=== PATIENT | female | born 1995 | race Caucasian/White ===

== ENCOUNTER 2018-02-24 20:41 | Emergency (ER) | payer OTHER ==
[2018-02-24] MEDS ORDERED: METOCLOPRAMIDE HCL INJ/PF 10 MG/2 ML SDV IM ONE (22:26)
[2018-02-24] MEDS ORDERED: DIPHENHYDRAMINE HCL 50 MG/ML VIAL IM ONE (22:26)
--- NOTE | 2018-02-24 22:29 | ER Document Report ---
ED Headache - General Chief Complaint: Headache Stated Complaint: HEADACHE Time Seen by Provider: 02/24/18 22:12 Mode of Arrival: Ambulatory Information source: Patient TRAVEL OUTSIDE OF THE [place] IN LAST 30 DAYS: No - HPI Patient complains to provider of: Headache Notes: Patient is here with complaints of headache. She states that for the last week she has had a headache. When she takes ibuprofen the headache typically goes away but then when the ibuprofen wears off the headache returns. She states that today the headaches seem to get worse and the ibuprofen was no longer helping. Headache seems to be behind her eyes and wraps around the right side of her head. She describes it as a pressure. She denies any blurred or loss vision. She denies any nausea, vomiting, diarrhea. She does complain of some tingling to the right side of her face, but denies any numbness. She denies any unilateral numbness, tingling, weakness to her extremities at this time. She has no chest pain or shortness of breath. This was not a sudden onset, thunderclap type headache, it has been gradual and intermittent throughout the week. She denies being on blood thinning medications. She denies any injury to the head. She denies any fevers or neck stiffness. She denies any new rashes. She denies any blurred or loss vision. Patient recently moved to [place] about a month ago, but does have a primary care doctor who she is established with. She states that it is not common for her to get headaches. She denies any other complaints at this time. Past Medical History - Social History Smoking Status: Never Smoker Chew tobacco use (# tins/day): No Frequency of alcohol use: None Drug Abuse: None Family History: Reviewed & Not Pertinent Patient has suicidal ideation: No Patient has homicidal ideation: No Renal/ Medical History: Denies: Hx Peritoneal Dialysis Past Surgical History: Reports: Hx Tonsillectomy Review of Systems - Review of Systems -: Yes All other systems reviewed and negative Physical Exam - Vital signs Vitals: Temp Pulse Resp BP Pulse Ox 98.0 F 87 16 157/95 H 97 02/24/18 20:49 02/24/18 20:49 02/24/18 20:49 02/24/18 20:49 02/24/18 20:49 - Notes Notes: GENERAL: alert, cooperative, nontoxic, no distress. HEAD: normocephalic, atraumatic EYES: conjunctiva pink without discharge, no external redness or swelling. Pupils are equal, round, reactive to light. EARS: no external swelling, no external redness NOSE: atraumatic, no external swelling MOUTH/THROAT: mucous membranes moist and pink, posterior pharynx without erythema, swelling, exudate. No trismus or drooling. NECK: soft, supple, full range of motion, no meningismus. CHEST: no distress, lungs clear and equal throughout. No wheezing, rales, rhonchi. CARDIAC: regular rate and rhythm, no murmur, normal capillary refill, normal pulses. No peripheral edema noted. BACK: full range of motion, no CVA tenderness. EXTREMITIES: full range of motion of all extremities. No redness, no swelling. NEURO: alert and oriented x 3, cranial nerves II through XII are grossly intact. Upper and lower extremities are equal throughout. Normal sensation. No focal deficits, full range of motion of all extremities. normal finger to nose. No facial sensation deficits on exam. PYSCH: appropriate mood, affect. Patient is cooperative. SKIN: pink, warm, dry, no rash. Course - Re-evaluation Re-evalutation: 02/24/18 23:58 Patient is nontoxic appearing with stable vitals. The patient arrives with complaint of headache. This headache is been present for 1 week. She states that the headache seems to improve with ibuprofen but then when the ibuprofen wears off it returns. Today she was unable to get the headache to go away with ibuprofen. This was not a sudden onset, thunderclap headache. She is not on blood thinning medications. There was no injury. She denies any significant history of headaches. She has no neck stiffness. No fevers. She is a nonfocal neurological exam. Due to the fact that she does not have a significant history of headaches, a CT of the brain was ordered, this shows no acute findings per the radiologist. Patient was given migraine cocktail including Toradol, Reglan, Benadryl IM. She states that she is feeling significantly better at this time and would like to go home. The patient will be discharged home with instructions to follow-up with her primary care doctor at the next available appointment. Follow-up sooner for worsening pain, high fever, neck stiffness, persistent vomiting, numbness, tingling, weakness, or for any further concerns. Patient has no signs of subarachnoid hemorrhage, meningitis, other serious pathological source for her headache at this time. The patient is noted to have elevated blood pressure during today's emergency department visit. The patient was informed of this finding. The patient was instructed that this may be related to pre-hypertension and requires further evaluation with a primary care provider. The patient has no hypertensive symptoms at this time. The patient's emergency department workup and current diagnosis were explained to the patient and or family. Follow-up instructions were provided. Medications if prescribed were discussed. Instructions for when to return to the emergency department including specific worrisome symptoms were discussed with the patient and/or family. - Vital Signs Vital signs: Temp Pulse Resp BP Pulse Ox 98.0 F 87 16 157/95 H 97 02/24/18 20:49 02/24/18 20:49 02/24/18 20:49 02/24/18 20:49 02/24/18 20:49 - Diagnostic Test Radiology reviewed: Image reviewed, Reports reviewed - Negative brain CT Discharge - Discharge Clinical Impression: Headache Qualifiers: Headache type: unspecified Headache chronicity pattern: acute headache Intractability: not intractable Qualified Code(s): R51 - Headache Condition: Stable Disposition: HOME, SELF-CARE Instructions: Headache ([facility]) Additional Instructions: Follow-up with your doctor at the next available appointment. Drink plenty of fluids. Tylenol or Motrin as needed for further headaches. Follow-up sooner for worsening pain, high fever, numbness, tingling, weakness on one side your body, neck stiffness, rash, persistent vomiting, or for any further concerns. Your blood pressure was elevated during today's visit. Have this rechecked with your doctor. Forms: Elevated Blood Pressure Referrals: PHIL FIELDS FNP-C [Primary Care Provider] - Follow up as needed
--- NOTE | 2018-02-24 23:04 | RADIOLOGY REPORT (SQ) ---
EXAM DESCRIPTION: CT HEAD WITHOUT COMPLETED DATE/TIME: 02/24/2018 10:55 pm REASON FOR STUDY: headache COMPARISON: None. TECHNIQUE: Axial images acquired through the brain without intravenous contrast. Images reviewed wi th bone, brain and subdural windows. Additional sagittal and coronal reconstructions were generated. Images stored on PACS. All CT scanners at this facility use dose modulation, iterative reconstruction, and/or weight based d osing when appropriate to reduce radiation dose to as low as reasonably achievable (ALARA). [facility]: Dose Right [facility]: CareDose [facility]: Dose Right [facility]: Teradose 4D [facility]: [employer] RADIATION DOSE: CT Rad equipment meets quality standard of care and radiation dose reduction techniq ues were employed. CTDIvol: 48.6 mGy. DLP: 929 mGy-cm. mGy. LIMITATIONS: None. FINDINGS: VENTRICLES: Normal size and contour. CEREBRUM: No masses. No hemorrhage. No midline shift. No evidence for acute infarction. Normal gra y/white matter differentiation. No areas of low density in the white matter. CEREBELLUM: No masses. No hemorrhage. No alteration of density. No evidence for acute infarction. EXTRAAXIAL SPACES: No fluid collections. No masses. ORBITS AND GLOBE: No intra- or extraconal masses. Normal contour of globe without masses. CALVARIUM: No fracture. PARANASAL SINUSES: No fluid or mucosal thickening. SOFT TISSUES: No mass or hematoma. OTHER: No other significant finding. IMPRESSION: NORMAL BRAIN CT WITHOUT CONTRAST. EVIDENCE OF ACUTE STROKE: NO. COMMENT: Quality ID # [id number]: Final reports with documentation of one or more dose reduction techniques (e.g., Automated exposure control, adjustment of the mA and/or kV according to patient size, use of iterative reconstruction technique) TECHNICAL DOCUMENTATION: JOB ID: [id number] [email or web address]- All Rights Reserved Reading location - IP/workstation name: [email or web address] [id number]
[2018-02-24] MEDS ORDERED: KETOROLAC TROMETHAMINE INJ/PF 30 MG/1 ML SDV IM ONE (23:11)
[2018-02-25 00:09] VITALS: BP 137/89
== END 2018-02-25 00:11 | disposition home or self-care (01) ==
LOC: ER 20:41
DX: R51 Headache (principal); R20.0 Anesthesia of skin
CPT/HCPCS: 99284; 96372; 70450; J1200; J1885; J2765

== ENCOUNTER 2018-03-01 18:48 | Emergency (ER) | payer OTHER ==
[2018-03-01] MEDS ORDERED: KETOROLAC TROMETHAMINE INJ/PF 30 MG/1 ML SDV IV ONE (21:25)
[2018-03-01] MEDS ORDERED: METOCLOPRAMIDE HCL INJ/PF 10 MG/2 ML SDV IV ONE (21:25)
[2018-03-01] MEDS ORDERED: DIPHENHYDRAMINE HCL 50 MG/ML VIAL IV ONE (21:25)
[2018-03-01] MEDS ORDERED: METOPROLOL TARTRATE 25 MG TABLET PO ONE (21:25)
--- NOTE | 2018-03-01 21:29 | ER Document Report ---
ED General - General Chief Complaint: Numbness of Face Stated Complaint: FACIAL NUMBNESS Time Seen by Provider: 03/01/18 20:58 Mode of Arrival: Ambulatory Information source: POA - Power of District Recruiter Notes: Patient presents complaining of left face and neck fullness and tightness that started today. Patient states she has had headache pains off and on for over a week. Patient states that her headache only just started while she was waiting here in the lobby today. Patient additionally complains of cramping to her left calf that occurred 2 days ago and then happened again today. Patient states that she felt the muscles spasming and then stopped. Patient was seen here 5 days ago for headache pain and had a negative CAT scan of the head. Patient did have an elevated blood pressure reading at that time and was advised to follow-up with her primary doctor. Patient saw her primary doctor yesterday and was placed on a blood pressure medicine as well as cholesterol medicine. Patient states that she is due to have an outpatient MRI as well. Patient denies any fever, chest pain or shortness of breath. Patient states that her primary doctor was called and advised her to come to the emergency department to rule out any cardiac source for her symptoms tonight. TRAVEL OUTSIDE OF THE [place] IN LAST 30 DAYS: No - HPI Onset: This afternoon Onset/Duration: Gradual Pain Level: 1 Associated symptoms: Headache, Other - Full feeling to left side of face and neck. denies: Chest pain, Fever, Nausea, Vomiting Exacerbated by: Denies Relieved by: Denies Similar symptoms previously: No Recently seen / treated by doctor: Yes - Related Data Allergies/Adverse Reactions: Sulfa (Sulfonamide Antibiotics) Allergy (Verified 03/01/18 18:50) Past Medical History - General Information source: Patient - Social History Smoking Status: Never Smoker Frequency of alcohol use: None Drug Abuse: None Occupation: None Family History: Reviewed & Not Pertinent - Past Medical History Cardiac Medical History: Reports: Hx Hypercholesterolemia, Hx Hypertension Renal/ Medical History: Denies: Hx Peritoneal Dialysis Past Surgical History: Reports: Hx Tonsillectomy Review of Systems - Review of Systems Constitutional: No symptoms reported. denies: Fever, Recent illness EENT: No symptoms reported. denies: Blurred vision, Throat pain, Dental problem Cardiovascular: No symptoms reported. denies: Chest pain, Dizziness, Lightheaded Respiratory: No symptoms reported. denies: Cough Gastrointestinal: No symptoms reported. denies: Abdominal pain, Vomiting Genitourinary: No symptoms reported Female Genitourinary: No symptoms reported Musculoskeletal: Muscle pain - Left calf cramping Skin: No symptoms reported Hematologic/Lymphatic: No symptoms reported Neurological/Psychological: Headaches, Other - Tight, full feeling to left side of face and neck. denies: Weakness Physical Exam - Vital signs Vitals: Temp Pulse Resp BP Pulse Ox 98.3 F 104 H 16 163/92 H 99 03/01/18 18:54 03/01/18 18:54 03/01/18 18:54 03/01/18 18:54 03/01/18 18:54 - General General appearance: Appears well, Alert In distress: None - HEENT Head: Normocephalic, Atraumatic, Open wounds Conjunctiva: Normal Extraocular movements intact: Yes Eyelashes: Normal Pupils: PERRL Ears: Normal External canal: Normal Tympanic membrane: Normal Nasal: Normal Mouth/Lips: Normal Mucous membranes: Normal Teeth diagram: 1 - dental caries Neck: Supple. No: Lymphadenopathy Notes: Subtle asymmetric fullness noted to left cheek and lateral side of neck, no lymphadenopathy, no parotid gland swelling. No dental tenderness. - Respiratory Respiratory status: No respiratory distress Chest status: Nontender Breath sounds: Normal Chest palpation: Normal - Cardiovascular Rhythm: Regular Heart sounds: S1 appreciated, S2 appreciated Murmur: No - Back Back: Tender - Left upper thoracic paraspinal tenderness. No: Deformity/step- off, CVA tenderness, Vertebra tenderness - Extremities General upper extremity: Normal inspection, Nontender, Normal ROM General lower extremity: Normal inspection, Nontender, Normal color, Normal ROM. No: Edema Calf: Normal, Nontender. No: Ecchymosis - Neurological Neuro grossly intact: Yes Cognition: Normal Orientation: AAOx4 [place] Coma Scale Eye Opening: Spontaneous [place] Coma Scale Verbal: Oriented [place] Coma Scale Motor: Obeys Commands [place] Coma Scale Total: 15 Speech: Normal. No: Dysarthria Cranial nerves: Normal. No: Facial palsy, Tongue deviation Cerebellar coordination: Normal, Heel-hung, Finger-nose rhombey, Rapid alt. movements. No: Gait ataxia Motor strength normal: LUE, RUE, LLE, RLE Additional motor exam normals: No: Weakness - Psychological Associated symptoms: Normal affect, Normal mood - Skin Skin Temperature: Warm Skin Moisture: Dry Skin Color: Normal Irregularity with: Other - Inflamed, scabbed acne lesions to face, left worse than right Course - Re-evaluation Re-evalutation: 03/01/18 21:[address] Watson regarding patient presentation and diagnostic evaluation. Recommends giving patient 25 of metoprolol now to help with headache as well as blood pressure symptoms and discharging patient home on metoprolol 25 twice daily. Patient just had a CT scan of the head performed 5 days ago and it was normal. Dr watson does not recommend obtaining emergent MRI at this time. 03/02/18 00:15 Patient no longer hypertensive and the metoprolol was not given during his ER stay. Patient encouraged to monitor her blood pressure and to follow-up with her primary doctor for recheck. Patient reports headache pain has resolved as well as pain, tightness and paresthesia to left cheek and neck. Patient does continue with subtle swelling to left cheek and neck area, patient does have inflamed acne skin lesions on the side of her face. Discussed with patient treating for possible developing cellulitis. Patient encouraged to follow-up with her primary doctor for recheck as well as to follow-up with neurology for further evaluation of her headaches. Patient neurologically intact, no concern for meningitis, CVA, DVT, or acute coronary syndrome. 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 The patient is neurologically intact. Given the extremely low risk of these diagnoses further testing and evaluation for these possibilities does not appear to be indicated at this time. The patient has been instructed to return if the symptoms worsen or change in any way. - Vital Signs Vital signs: Temp Pulse Resp BP Pulse Ox 97.7 F 101 H 16 123/72 96 03/01/18 23:57 03/01/18 23:57 03/01/18 23:57 03/01/18 23:57 03/01/18 23:57 - Laboratory Result Diagrams: 03/01/18 22:30 03/01/18 22:30 Laboratory results interpreted by me: 03/01/18 03/01/18 22:30 22:30 MCV 79 L MCH 26.8 L RDW 15.0 H Calcium 10.6 H - Diagnostic Test Radiology reviewed: Reports reviewed - Reviewed CT report from 5 days ago Discharge - Discharge Clinical Impression: left facial/neck swelling, paresthesia, Inflammatory acne, Leg cramps Headache Qualifiers: Headache type: unspecified Headache chronicity pattern: episodic headache Intractability: not intractable Qualified Code(s): R51 - Headache Condition: Stable Instructions: Acne ([facility]), Cephalexin ([facility]), Headache ([facility]), Leg Cramps ([facility]) Additional Instructions: Return immediately for any new or worsening symptoms Followup with your primary care provider, call tomorrow to make a followup appointment Follow-up with neurology for further evaluation of your headaches Prescriptions: Butalb/Acetaminophen/Caffeine [Fioricet (50-325-40 mg) Tablet] 1 - 2 tab PO Q4H PRN #15 each PRN Reason: Cephalexin Monohydrate [Keflex 500 mg Capsule] 500 mg PO Q6H 5 Days capsule Referrals: BROOKE DONOUHE MD [NO LOCAL MD] - Follow up as needed AFTAB MADISON FNP-C [NO LOCAL MD] - Follow up tomorrow
--- NOTE | 2018-03-01 22:16 | RADIOLOGY REPORT (SQ) ---
EXAM DESCRIPTION: CHEST 2 VIEWS COMPLETED DATE/TIME: 03/01/2018 9:48 pm REASON FOR STUDY: upper back pain COMPARISON: None. EXAM PARAMETERS: NUMBER OF VIEWS: two views TECHNIQUE: Digital Frontal and Lateral radiographic views of the chest acquired. RADIATION DOSE: NA LIMITATIONS: none FINDINGS: LUNGS AND PLEURA: No opacities, masses or pneumothorax. No pleural effusion. MEDIASTINUM AND HILAR STRUCTURES: No masses or contour abnormalities. HEART AND VASCULAR STRUCTURES: Heart normal size. No evidence for failure. BONES: No acute findings. HARDWARE: None in the chest. OTHER: No other significant finding. IMPRESSION: NO ACUTE RADIOGRAPHIC FINDING IN THE CHEST. TECHNICAL DOCUMENTATION: JOB ID: [id number] [place]-72 2010 [employer]- All Rights Reserved Reading location - IP/workstation name: [email or web address]
[2018-03-01 22:52] LABS: ABSOLUTE EOSINOPHILS # (AUTO) 0.1 10^3/uL (0.0-0.6); ABSOLUTE LYMPHOCYTES (AUTO) 2.1 10^3/uL (0.5-4.7); ABSOLUTE MONOCYTES (AUTO) 0.5 10^3/uL (0.1-1.4); ABSOLUTE NEUT (AUTO) 6.3 10^3/uL (1.7-8.2); BASOPHILS % (AUTO) 0.3 % (0-2); EOSINOPHILS % (AUTO) 1.5 % (0-6); HEMATOCRIT 40.1 % (36.0-47.0); HEMOGLOBIN 13.7 g/dL (12.0-15.5); LYMPHOCYTES % (AUTO) 22.7 % (13-45); MEAN CORPUSCULAR HEMOGLOBIN 26.8 pg (27.0-33.4); MEAN CORPUSCULAR HGB CONC 34.1 g/dL (32.0-36.0); MEAN CORPUSCULAR VOLUME 79 fl (80-97); MONOCYTES % (AUTO) 5.9 % (3-13); PLATELET COUNT 224 10^3/uL (150-450); RED BLOOD COUNT 5.11 10^6/uL (3.72-5.28); SEGMENTED NEUTROPHILS % (AUTO) 69.6 % (42-78); TOTAL CELLS COUNTED % (AUTO) 100 %; WHITE BLOOD COUNT 9.1 10^3/uL (4.0-10.5)
[2018-03-01 23:07] LABS: ALANINE AMINOTRANSFERASE 39 U/L (9-52); ALBUMIN 4.8 g/dL (3.5-5.0); ALKALINE PHOSPHATASE 58 U/L (38-126); ANION GAP 13 (5-19); ASPARTATE AMINO TRANSFERASE 23 U/L (14-36); BILIRUBIN,DIRECT 0.1 mg/dL (0.0-0.4); BILIRUBIN,TOTAL 1.2 mg/dL (0.2-1.3); BLOOD UREA NITROGEN 9 mg/dL (7-20); CALCIUM 10.6 mg/dL (8.4-10.2); CARBON DIOXIDE 29 mmol/L (22-30); CHLORIDE 101 mmol/L (98-107); CREATINE KINASE 58 U/L (30-135); GLUCOSE 90 mg/dL (75-110); POTASSIUM 4.2 mmol/L (3.6-5.0); SODIUM 142.7 mmol/L (137-145); TOTAL PROTEIN 7.5 g/dL (6.3-8.2)
[2018-03-01 23:19] LABS: CREATINE KINASE MB 0.46 ng/mL (<4.55)
[2018-03-01 23:24] LABS: TROPONIN I < 0.012 ng/mL
[2018-03-02] MEDS ORDERED: CEPHALEXIN 500 MG CAPSULE PO ONE (00:22)
[2018-03-02 00:42] VITALS: BP 123/72
--- NOTE | 2018-03-02 07:51 | EKG REPORT ---
SEVERITY:- BORDERLINE ECG - SINUS TACHYCARDIA BORDERLINE T ABNORMALITIES, ANTERIOR LEADS : Confirmed by: Thierno Reagan MD 02-Mar-2018 07:50:57
== END 2018-03-02 01:15 | disposition home or self-care (01) ==
LOC: ER 18:48
DX: R22.0 Localized swelling, mass and lump, head (principal); R22.1 Localized swelling, mass and lump, neck; R20.0 Anesthesia of skin; L70.8 Other acne; R25.2 Cramp and spasm; R51 Headache; M54.2 Cervicalgia; M54.6 Pain in thoracic spine; M79.605 Pain in left leg; I10 Essential (primary) hypertension; Z79.899 Other long term (current) drug therapy
CPT/HCPCS: 93005; 99284; 96374; 96375; 36415; 82553; 82550; 84703; 85025; 80053; 84484; 71046; 93010; J1200; J1885; J2765

== ENCOUNTER 2018-09-15 20:51 | Emergency (ER) | payer OTHER ==
[2018-09-15 20:58] VITALS: BP 139/79
--- NOTE | 2018-09-15 21:22 | ER Document Report ---
HPI - HPI Patient complains to provider of: dysuria, hematuria Pain Level: 2 Context: Patient is a 23-year-old female that comes to the emergency department for chief complaint of painful urination over the past day and she started to notice blood in her urine. She denies flank pain, nausea or vomiting, fever or chills. Denies vaginal discharge or bleeding. LMP within the past month. Medications are labetalol and metformin. Denies any surgeries. Past Medical History - General Information source: Patient - Social History Smoking Status: Never Smoker Frequency of alcohol use: None Drug Abuse: None Lives with: Family Family History: Reviewed & Not Pertinent - Past Medical History Cardiac Medical History: Reports: Hx Hypercholesterolemia, Hx Hypertension Renal/ Medical History: Denies: Hx Peritoneal Dialysis Past Surgical History: Reports: Hx Tonsillectomy - Immunizations Immunizations up to date: Yes Hx Diphtheria, Pertussis, Tetanus Vaccination: Yes Vertical Provider Document - CONSTITUTIONAL General Appearance: WD/WN, No Apparent Distress - INFECTION CONTROL TRAVEL OUTSIDE OF THE [place] IN LAST 30 DAYS: No - HEENT HEENT: Atraumatic, Normal ENT Exam, Normocephalic - NECK Neck: Normal Inspection - RESPIRATORY Respiratory: Breath Sounds Normal, No Respiratory Distress - CARDIOVASCULAR Cardiovascular: Regular Rate, Regular Rhythm - GI/ABDOMEN Gastrointestinal: Abdomen Soft, Abdomen Non-Tender. negative: Abdomen Tender - BACK Back: Normal Inspection. negative: CVA Tenderness-Right, CVA Tenderness-Left - MUSCULOSKELETAL/EXTREMETIES Musculoskeletal/Extremeties: MAEW, FROM, Non-Tender - NEURO Level of Consciousness: Awake, Alert, Appropriate - DERM Integumentary: Warm, Dry, No Rash Course - Re-evaluation Re-evalutation: Patient alert and well-appearing. Soft abdomen, no CVA tenderness, patient is not tachycardic on my examination. No fever. No nausea or vomiting. No signs of distress or concerning findings suggesting acute abdomen or infected ureterolithiasis. Clinical presentation and symptoms most suggestive of cystitis. Started on antibiotics, discussed follow-up, expectations, and return precautions. Patient states understanding and agreement. - Vital Signs Vital signs: Temp Pulse Resp BP Pulse Ox 98.4 F 109 H 16 139/79 H 96 09/15/18 20:57 09/15/18 20:57 09/15/18 20:57 09/15/18 20:57 09/15/18 20:57 Discharge - Discharge Clinical Impression: Dysuria Hematuria Qualifiers: Hematuria type: gross Qualified Code(s): R31.0 - Gross hematuria Condition: Stable Disposition: HOME, SELF-CARE Additional Instructions: Your evaluation is consistent with cystitis (a bladder urinary tract infection). Take Keflex antibiotics as prescribed. Follow-up with primary care. Return if you worsen including abdominal pain, flank pain, vomiting, fever of 100.4 or greater, or any other concerning or worsening symptoms. Prescriptions: Cephalexin Monohydrate [Keflex 500 mg Capsule] 500 mg PO BID #14 capsule
[2018-09-15 21:44] LABS: APPEARANCE,URINE CLOUDY; BILIRUBIN,URINE NEGATIVE (NEGATIVE); COLOR,URINE YELLOW; GLUCOSE, URINE NEGATIVE (NEGATIVE); KETONES,URINE NEGATIVE (NEGATIVE); LEUKOCYTE ESTERASE,URINE MODERATE (NEGATIVE); NITRITE,URINE NEGATIVE (NEGATIVE); PROTEIN,URINE 100 mg/dL (NEGATIVE); URINE SPECIFIC GRAVITY 1.019; UROBILINOGEN,URINE NEGATIVE mg/dL (<2.0)
[2018-09-15] MEDS ORDERED: CEPHALEXIN 500 MG CAPSULE PO ONE (21:49)
[2018-09-15] MEDS ORDERED: PHENAZOPYRIDINE HCL 200 MG TABLET PO ONE (21:50)
== END 2018-09-15 22:05 | disposition home or self-care (01) ==
LOC: ER 20:51
DX: R30.0 Dysuria (principal); R31.0 Gross hematuria; I10 Essential (primary) hypertension; Z79.899 Other long term (current) drug therapy; Z79.84 Long term (current) use of oral hypoglycemic drugs
CPT/HCPCS: 99283; 87086; 81025; 87088; 81001; 87186; J3490

== ENCOUNTER 2018-10-24 18:41 | Emergency (ER) | payer OTHER ==
--- NOTE | 2018-10-24 19:02 | ER Document Report ---
ED Allergic Reaction - General Chief Complaint: Swelling of Tongue Stated Complaint: POSSIBLE ALLERGIC REACTION Time Seen by Provider: 10/24/18 19:01 Mode of Arrival: Ambulatory Information source: Patient Notes: Patient is a 23-year-old female with no significant past medical history and documented allergy to sulfa drugs who presents after episode of tongue swelling and lightheadedness with paresthesias of the extremities that occurred immediately prior to arrival. Patient reports waking up this morning with "a spider bite" on her right leg, she presented to urgent care where they proceeded to "pop it," approximately 50 minutes after this she experienced an episode of tongue swelling associated with paresthesias of the extremities. She denies itching or rash, no welts or hives, no history of similar symptoms. The only new medication for the patient is hydrochlorothiazide that she started 2 days ago and takes twice daily, took her dose this morning but has not taken it tonight yet. She was given 125 mg of Solu-Medrol as well as 50 mg of Benadryl prior to arrival. Currently, the patient states that she has no symptoms. TRAVEL OUTSIDE OF THE [place] IN LAST 30 DAYS: No - HPI Onset: Just prior to arrival Onset/Duration: Sudden Quality of pain: No pain Severity: Mild Pain Level: Denies Identified cause: No Medication Exposure: Hydrochlorothiazide Swelling: Tongue Trouble swallowing / speaking: Mild Associated symptoms: Lightheaded Similar symptoms previously: No Recently seen / treated by doctor: No - Related Data Allergies/Adverse Reactions: Sulfa (Sulfonamide Antibiotics) Allergy (Severe, Verified 10/24/18 19:04) swelling Past Medical History - General Information source: Patient - Social History Smoking Status: Never Smoker Chew tobacco use (# tins/day): No Frequency of alcohol use: None Drug Abuse: None Lives with: Family Family History: Reviewed & Not Pertinent Patient has suicidal ideation: No Patient has homicidal ideation: No - Past Medical History Cardiac Medical History: Reports: Hx Hypercholesterolemia, Hx Hypertension Pulmonary Medical History: Reports: None EENT Medical History: Reports: None Neurological Medical History: Reports: None Endocrine Medical History: Reports: None Renal/ Medical History: Reports: None. Denies: Hx Peritoneal Dialysis Malignancy Medical History: Reports: None GI Medical History: Reports: None Musculoskeletal Medical History: Reports None Skin Medical History: Reports None Psychiatric Medical History: Reports: None Traumatic Medical History: Reports: None Infectious Medical History: Reports: None Surgical Hx: Negative Past Surgical History: Reports: Hx Tonsillectomy - Immunizations Immunizations up to date: Yes Hx Diphtheria, Pertussis, Tetanus Vaccination: Yes Review of Systems - Review of Systems -: Yes ROS unobtainable due to patient's medical condition Constitutional: No symptoms reported EENT: Mouth swelling Cardiovascular: No symptoms reported Respiratory: No symptoms reported Gastrointestinal: No symptoms reported Genitourinary: No symptoms reported Female Genitourinary: No symptoms reported Musculoskeletal: No symptoms reported Skin: See HPI Hematologic/Lymphatic: No symptoms reported Neurological/Psychological: No symptoms reported -: Yes All other systems reviewed and negative Physical Exam - Vital signs Vitals: Temp Pulse Resp BP Pulse Ox 98.0 F 106 H 18 116/78 98 10/24/18 19:02 10/24/18 19:02 10/24/18 19:02 10/24/18 19:02 10/24/18 19:02 Interpretation: Normal - General General appearance: Appears well, Alert In distress: None - HEENT Head: Normocephalic, Atraumatic Eyes: Normal Pupils: PERRL - Respiratory Respiratory status: No respiratory distress Chest status: Nontender Breath sounds: Normal Chest palpation: Normal - Cardiovascular Rhythm: Regular Heart sounds: Normal auscultation Murmur: No - Abdominal Inspection: Normal Distension: No distension Bowel sounds: Normal Tenderness: Nontender Organomegaly: No organomegaly - Rectal Tenderness: No - Deferred - Genitourinary Notes: Deferred - Back Back: Normal, Nontender - Extremities General upper extremity: Normal inspection, Nontender, Normal color, Normal ROM , Normal temperature General lower extremity: Normal inspection, Nontender, Normal color, Normal ROM , Normal temperature, Normal weight bearing. No: Carmina's sign - Neurological Neuro grossly intact: Yes Cognition: Normal Orientation: AAOx4 Lino Coma Scale Eye Opening: Spontaneous [place] Coma Scale Verbal: Oriented Lino Coma Scale Motor: Obeys Commands [place] Coma Scale Total: 15 Speech: Normal Motor strength normal: LUE, RUE, LLE, RLE Sensory: Normal - Psychological Associated symptoms: Normal affect, Normal mood - Skin Skin Temperature: Warm Skin Moisture: Dry Skin Color: Normal Course - Re-evaluation Re-evalutation: 10/24/18 20:22 Plan is to observe the patient for a total of 4-6 hours after resolution of symptoms to assess for possible recurrence. Currently the patient is symptom- free. 10/24/18 22:55 Patient has been observed and has not had recurrent symptoms. She will be discharged home with return precautions and instructed to follow-up with her primary physician. She has also been instructed to stop taking the hydrochlorthiazide immediately as this may have precipitated the event. She will be provided with a prescription for prednisone, she is in agreement and understands the plan. - Vital Signs Vital signs: Temp Pulse Resp BP Pulse Ox 98.0 F 106 H 19 123/77 95 10/24/18 19:02 10/24/18 19:02 10/24/18 20:01 10/24/18 20:01 10/24/18 20:01 Discharge - Discharge Clinical Impression: Allergic reaction Disposition: HOME, SELF-CARE Instructions: Acute Allergic Reaction ([facility]) Additional Instructions: Please follow-up with your primary physician as soon as possible. Be sure to get your prescriptions for both prednisone and an EpiPen filled as soon as possible. Return to the emergency department if you experience recurrent symptoms that include swelling of the face or throat, difficulty breathing, or any other concerning symptom. It is safe to take Benadryl as needed for itching , you may take 25 mg by mouth up to 3 times daily as needed. Prescriptions: Epinephrine [Epipen 2-Robert] 0.3 mg IJ ONCE PRN #1 auto.[email or web address] PRN Reason: Prednisone [Deltasone 20 mg Tablet] 40 mg PO DAILY 5 Days #10 tablet Print Language: Estonian
[2018-10-24 23:19] VITALS: BP 119/75
== END 2018-10-24 23:23 | disposition home or self-care (01) ==
LOC: ER 18:41
DX: T78.40XA Allergy, unspecified, initial encounter (principal); R22.0 Localized swelling, mass and lump, head; R42 Dizziness and giddiness; R20.2 Paresthesia of skin; X58.XXXA Exposure to other specified factors, initial encounter; I10 Essential (primary) hypertension; Z88.2 Allergy status to sulfonamides
CPT/HCPCS: 99283

== ENCOUNTER → 2020-10-23 | Outpatient (CLI) | payer OTHER ==
--- NOTE | 2020-10-23 09:15 | WOMENS IMAGING REPORT ---
EXAM DESCRIPTION: U/S ABDOMEN LIMITED IMAGES COMPLETED DATE/TIME: 10/23/2020 8:29 am REASON FOR STUDY: R10.11 RIGHT UPPER QUADRANT PAIN R10.11 RIGHT UPPER QUADRANT PAIN COMPARISON: None. TECHNIQUE: Dynamic and static grayscale images acquired of the abdomen and recorded on PACS. Additio nal selected color Doppler and spectral images recorded. LIMITATIONS: None. FINDINGS: PANCREAS: The visualized portions of the pancreatic head and body appear normal. The panc reatic tail is obscured by overlying bowel. LIVER: The echogenicity of the hepatic parenchyma is increased and there is associated attenuation of the far field. LIVER VASCULATURE: Normal hepatopetal directional flow in the main portal vein. The hepatic veins ar e patent. GALLBLADDER: The gallbladder wall measures 1.3 mm in thickness. There is no cholelithiasis, sludge o r pericholecystic fluid. ULTRASOUND-DETECTED HENSLEY'S SIGN: Negative. INTRAHEPATIC DUCTS AND COMMON DUCT: The common bile duct measures 5.1 mm in diameter. There is no di latation of the intrahepatic ducts. INFERIOR VENA CAVA: Patent. AORTA: No aneurysm. RIGHT KIDNEY: The right kidney measures 12.7 cm in length. There is no hydronephrosis. PERITONEAL AND RIGHT PLEURAL SPACE: No ascites or effusions. OTHER: No other findings. IMPRESSION: 1. Increased echogenicity of hepatic parenchyma suggestive of underlying diffuse hepatoc ellular disease most commonly hepatic steatosis. 2. Normal appearance of the gallbladder. TECHNICAL DOCUMENTATION: JOB ID: [id number] [employer]- All Rights Reserved Reading location - IP/workstation name: [email or web address]
== END ==
LOC: WI 07:30
PROVIDERS: ATTEND Surgery
DX: R10.11 Right upper quadrant pain (principal)
CPT/HCPCS: 76705